=== PATIENT | male | born 1955 | race Caucasian/White ===

== ENCOUNTER 2017-01-20 12:26 | Inpatient (IN) | payer MEDICAID ==
[~2017-01-20] VITALS: Ht 190.5 cm; Wt 71.9 kg
[2017-01-20 13:50] LABS: BASOPHILS # (AUTO) 0.02 K/uL (0.00-0.20); BASOPHILS % (AUTO) 0.3 % (0.0-2.0); EOSINOPHILS # (AUTO) 0.04 K/uL (0.00-0.70); HEMOGLOBIN 10.9 g/dL (13.5-17.5); LYMPHOCYTES # (AUTO) 1.2 K/uL (1.0-4.8); LYMPHOCYTES % (AUTO) 14.3 % (22.0-44.0); MEAN CORPUSCULAR HEMOGLOBIN 30.4 pg (26.0-34.0); MEAN CORPUSCULAR HGB CONC 32.9 G/dL (31.0-37.0); MEAN CORPUSCULAR VOLUME 92 fL (80-100); MONOCYTES # (AUTO) 0.2 K/uL (0.1-1.0); MONOCYTES % (AUTO) 2.6 % (2.0-9.0); NEUTROPHILS # (AUTO) 6.9 K/uL (1.8-7.7); NEUTROPHILS % (AUTO) 82.3 % (40.0-70.0); PLATELET COUNT (AUTO) 238 K/uL (150-450); RED BLOOD CELL COUNT(AUTO) 3.58 MIL/uL (4.50-5.90); RED CELL DISTRIBUTION WIDTH 13.7 % (11.5-14.5); WHITE BLOOD COUNT (AUTO) 8.4 K/uL (4.5-11.0)
[2017-01-20 13:57] LABS: ALANINE AMINOTRANSFERASE 30 U/L (12-78); ALBUMIN 3.1 g/dL (3.4-5.0); ANION GAP 10 mmol/L (8-16); ASPARTATE AMINOTRANSFERASE 40 U/L (15-37); BILIRUBIN,TOTAL 0.7 mg/dL (0.1-1.0); CALCIUM, TOTAL 8.3 mg/dL (8.8-10.5); CARBON DIOXIDE 28 mmol/L (22-29); CHLORIDE 103 mmol/L (98-107); CREATININE 2.25 mg/dL (0.60-1.30); GLOMERULAR FILTR. RATE CALC 30 mL/min (>60); SODIUM SERUM 141 mmol/L (136-145); TOTAL PROTEIN, SERUM 7.1 g/dL (6.4-8.2); UREA NITROGEN, BLOOD 34 mg/dL (7-18)
[2017-01-20 13:59] LABS: POTASSIUM 2.7 mmol/L (3.5-5.1)
[2017-01-20] MEDS ORDERED: CloNIDine HCL 0.2 MG TABLET PO ONE ×2 (14:00→18:45)
[2017-01-20] MEDS ORDERED: SODIUM CHLORIDE 0.9% 1,000 ML IV ONE (14:15)
[2017-01-20] MEDS: POTASSIUM CHL 10 MEQ/WATER 50 ML IV SCH ×4 (14:43→17:35)
[2017-01-20] MEDS ORDERED: NITROGLYCERIN 2% (1 GM=INCH) PACKET TP ONE (18:45)
[2017-01-20] MEDS ORDERED: HALOPERIDOL 5 MG TABLET PO PRN (19:30)
[2017-01-20] MEDS ORDERED: LORazepam 2 MG TABLET PO PRN (19:30)
[2017-01-20] MEDS ORDERED: ZOLPIDEM TARTRATE 10 MG TABLET PO PRN (19:30)
[2017-01-21] MEDS ORDERED: CloNIDine HCL 0.1 MG TABLET PO ONE (20:15)
[2017-01-22] MEDS ORDERED: LISINOPRIL 10 MG TABLET PO ONE (07:45)
[2017-01-22] MEDS ORDERED: LISI-660 PO (07:47)
[2017-01-22] MEDS ORDERED: HYDR25TA PO (07:47)
[2017-01-22 11:30] VITALS: BP 166/101
[2017-01-22] MEDS: AmLODIPine BESYLATE 10 MG TABLET PO SCH (11:55)
[2017-01-22] MEDS: BENAZEPRIL HCL 20 MG TABLET PO SCH (11:55)
[2017-01-22] MEDS ORDERED: POTASSIUM CHLORIDE 20 MEQ ER TABLET PO ONE (12:00)
[2017-01-22 14:43] VITALS: BP 152/98
[2017-01-23 06:49] VITALS: BP 163/113
[2017-01-23] MEDS: CloNIDine HCL 0.1 MG TABLET PO PRN (06:55)
[2017-01-23 08:13] LABS: CHOL/HDL RATIO 2.7 (4.2-7.3); POTASSIUM 3.4 mmol/L (3.5-5.1)
[2017-01-23] MEDS: AmLODIPine BESYLATE 10 MG TABLET PO SCH (10:42)
[2017-01-23] MEDS: BENAZEPRIL HCL 20 MG TABLET PO SCH (10:42)
[2017-01-23 12:01] VITALS: BP 138/80
[2017-01-23 21:50] VITALS: BP 136/90
[2017-01-24 10:02] VITALS: BP 150/97
[2017-01-24] MEDS: AmLODIPine BESYLATE 10 MG TABLET PO SCH (10:30)
[2017-01-24] MEDS: BENAZEPRIL HCL 20 MG TABLET PO SCH (10:30)
[2017-01-24] MEDS: POTASSIUM CHLORIDE 20 MEQ ER TABLET PO SCH (13:10)
[2017-01-24 17:10] VITALS: BP 132/82
[2017-01-25 09:20] VITALS: BP 166/107
[2017-01-25] MEDS: CloNIDine HCL 0.1 MG TABLET PO PRN (09:22)
[2017-01-25] MEDS: AmLODIPine BESYLATE 10 MG TABLET PO SCH (09:23)
[2017-01-25] MEDS: BENAZEPRIL HCL 20 MG TABLET PO SCH (09:23)
[2017-01-25] MEDS: POTASSIUM CHLORIDE 20 MEQ ER TABLET PO SCH (09:23)
[2017-01-25] MEDS: CITALOPRAM HYDROBROMIDE 20 MG TABLET PO SCH (09:23)
[2017-01-25 13:41] VITALS: BP 132/85
[2017-01-25] MEDS: LOPERAMIDE HCL 2 MG CAPSULE PO PRN (15:04)
[2017-01-25 20:15] VITALS: BP 152/80
[2017-01-26 06:01] VITALS: BP 141/79
[2017-01-26 08:13] VITALS: BP 143/82
[2017-01-26] MEDS: BENAZEPRIL HCL 20 MG TABLET PO SCH (09:54)
[2017-01-26] MEDS: AmLODIPine BESYLATE 10 MG TABLET PO SCH (09:54)
[2017-01-26] MEDS: POTASSIUM CHLORIDE 20 MEQ ER TABLET PO SCH (09:54)
[2017-01-26] MEDS: CITALOPRAM HYDROBROMIDE 20 MG TABLET PO SCH (09:54)
[2017-01-26 19:27] VITALS: BP 136/81
[2017-01-27 06:52] VITALS: BP 138/79
[2017-01-27 08:16] VITALS: BP 167/97
[2017-01-27] MEDS: AmLODIPine BESYLATE 10 MG TABLET PO SCH (09:47)
[2017-01-27] MEDS: CITALOPRAM HYDROBROMIDE 20 MG TABLET PO SCH (09:47)
[2017-01-27] MEDS: POTASSIUM CHLORIDE 20 MEQ ER TABLET PO SCH (09:47)
[2017-01-27] MEDS: BENAZEPRIL HCL 20 MG TABLET PO SCH (09:47)
[2017-01-27] MEDS: LOPERAMIDE HCL 2 MG CAPSULE PO PRN (16:21)
[2017-01-27 20:58] VITALS: BP 137/77
[2017-01-28 08:15] VITALS: BP 153/100
[2017-01-28] MEDS: POTASSIUM CHLORIDE 20 MEQ ER TABLET PO SCH (09:00)
[2017-01-28] MEDS: BENAZEPRIL HCL 20 MG TABLET PO SCH (09:00)
[2017-01-28] MEDS: CITALOPRAM HYDROBROMIDE 20 MG TABLET PO SCH (09:00)
[2017-01-28] MEDS: AmLODIPine BESYLATE 10 MG TABLET PO SCH (09:00)
[2017-01-28 13:51] LABS: APPEARANCE,URINE CLEAR (CLEAR); GLUCOSE, URINE (UA) NEGATIVE (NEGATIVE); KETONES,URINE NEGATIVE (NEGATIVE); LEUKOCYTE ESTERASE ,URINE NEGATIVE (NEGATIVE); OCCULT BLOOD,URINE NEGATIVE (NEGATIVE); PROTEIN,URINE POS 1+ (NEGATIVE)
[2017-01-28 13:55] LABS: RBC,URINE 0-2 /HPF (0-2); WBC,URINE 0-2 /HPF (0-5)
[2017-01-28 16:56] VITALS: BP 132/88
[2017-01-29 06:36] VITALS: BP 140/82
[2017-01-29 08:08] VITALS: BP 155/98
[2017-01-29] MEDS: CITALOPRAM HYDROBROMIDE 20 MG TABLET PO SCH (10:06)
[2017-01-29] MEDS: BENAZEPRIL HCL 20 MG TABLET PO SCH (10:06)
[2017-01-29] MEDS: POTASSIUM CHLORIDE 20 MEQ ER TABLET PO SCH (10:06)
[2017-01-29] MEDS: AmLODIPine BESYLATE 10 MG TABLET PO SCH (10:08)
[2017-01-29] MEDS: CloNIDine HCL 0.1 MG TABLET PO PRN (11:21)
[2017-01-29 14:48] VITALS: BP 136/80
[2017-01-29 16:39] VITALS: BP 118/78
[2017-01-30 06:13] VITALS: BP 132/81
[2017-01-30 09:39] VITALS: BP 165/77
[2017-01-30] MEDS: CITALOPRAM HYDROBROMIDE 20 MG TABLET PO SCH (09:44)
[2017-01-30] MEDS: POTASSIUM CHLORIDE 20 MEQ ER TABLET PO SCH (09:44)
[2017-01-30] MEDS: BENAZEPRIL HCL 20 MG TABLET PO SCH (09:44)
[2017-01-30] MEDS: CloNIDine HCL 0.1 MG TABLET PO PRN (09:44)
[2017-01-30] MEDS: AmLODIPine BESYLATE 10 MG TABLET PO SCH (09:44)
[2017-01-30 21:22] VITALS: BP 123/77
[2017-01-31 07:02] VITALS: BP 128/82
[2017-01-31] MEDS: BENAZEPRIL HCL 20 MG TABLET PO SCH (09:18)
[2017-01-31] MEDS: CITALOPRAM HYDROBROMIDE 20 MG TABLET PO SCH (09:18)
[2017-01-31] MEDS: POTASSIUM CHLORIDE 20 MEQ ER TABLET PO SCH (09:18)
[2017-01-31] MEDS: AmLODIPine BESYLATE 10 MG TABLET PO SCH (09:18)
[2017-01-31 10:00] VITALS: BP 139/94
[2017-01-31] MEDS ORDERED: CITA20TA9 PO (11:44)
[2017-01-31] MEDS ORDERED: KDUR20 PO (11:47)
[2017-01-31] MEDS ORDERED: BENA20 PO (11:47)
[2017-01-31] MEDS ORDERED: AMLO-512 PO (11:47)
== END 2017-01-31 16:00 | disposition home or self-care (01) | DRG 750 ==
LOC: EMS 12:28 → UNDOADMIN 19:15 → 3EC 19:15 → 3EI 01-21 20:00 → UNDOADMIN 01-21 20:00 → AHU 01-22 08:18 → 3EI 01-22 08:38 → AHU 01-22 09:52 → 3EI 01-22 13:44
PROVIDERS: ADMIT Psychiatry & Neurology Psychiatry; ATTEND Psychiatry & Neurology Psychiatry
DX: F20.0 Paranoid schizophrenia (principal); N18.3 Chronic kidney disease, stage 3 (moderate); E86.0 Dehydration; R74.0 Nonspecific elevation of levels of transaminase and lactic acid dehydrogenase [LDH]; I12.9 Hypertensive chronic kidney disease with stage 1 through stage 4 chronic kidney disease, or unspecified chronic kidney disease; D64.9 Anemia, unspecified; E87.6 Hypokalemia; F10.10 Alcohol abuse, uncomplicated; Y90.0 Blood alcohol level of less than 20 mg/100 ml; F19.10 Other psychoactive substance abuse, uncomplicated
CPT/HCPCS: 80307; 84132; 93005; 99285; G0480; J3480; J7030